=== PATIENT | female | born 1965 | race Caucasian/White ===

== ENCOUNTER → 2019-02-04 07:27 | Outpatient (CLI) | payer BC, SELFPAY ==
--- NOTE | 2019-02-04 07:31 | DI.MG.S_ITS ---
BILATERAL DIGITAL SCREENING MAMMOGRAM 3D/2D WITH CAD: 02/04/2019 CLINICAL: Routine screening. Baseline exam. No prior exams were available for comparison. The tissue of both breasts is heterogeneously dense. This may lower the sensitivity of mammography. Current study was also evaluated with a Computer Aided Detection (CAD) system. No significant masses, calcifications, or other findings are seen in either breast. IMPRESSION: NEGATIVE There is no mammographic evidence of malignancy. A 1 year screening mammogram is recommended. This exam was interpreted at Station ID: [id number]. NOTE: For mammograms, a report in lay terms will be sent to the patient. Approximately 15% of breast malignancies will not be visualized mammographically. In the management of a palpable breast mass, a negative mammogram must not discourage biopsy of a clinically suspicious lesion. Electronically Signed By: Vinicius blake/jarad:02/04/2019 09:14:57 letter sent: Normal Exam ACR BI-RADS Category 1: Negative [id number]
== END ==
PROVIDERS: PCP Nurse Practitioner Family; Visit Provider Nurse Practitioner Family
DX: Z12.31 Encounter for screening mammogram for malignant neoplasm of breast (principal)
CPT/HCPCS: 77063; 77067

== ENCOUNTER → 2019-02-04 07:33 | Outpatient (CLI) | payer BC, SELFPAY ==
--- NOTE | 2019-02-04 08:08 | DI.MRI.S_ITS ---
PROCEDURE: MR HEAD/BRAIN WO CON INDICATIONS: Headache. TECHNIQUE: Noncontrast axial T1 spin echo, axial T2 fast spin echo, sagittal and axial FLAIR, coronal T2 fast spin echo, axial gradient echo, axial diffusion and ADC through the brain. COMPARISON: None. FINDINGS: Image quality: Excellent. CSF Spaces: Basal cisterns are patent. No extra-axial fluid collections. Ventricles are normal in size and shape. Brain: No intracranial masses or hemorrhage. Robles/white matter interface is normal. Brainstem appears normal. Diffusion-weighted images demonstrate no acute ischemic insult. No chronic ischemic insults. Normal intravascular flow voids are present. Skull and face: Calvarium has normal marrow signal. Orbits appear normal. Sinuses: There is mild mucosal thickening within the bilateral sphenoid, ethmoid, and maxillary sinuses.. IMPRESSION: 1. Negative evaluation of the brain. 2. Sinus disease. Dictated by: Jong Bahena M.D. on 02/04/2019 at 11:46 Approved by: Jong Bahena M.D. on 02/04/2019 at 11:48
[2019-02-04 08:57] LABS: Hematocrit 40.1 % (36-46); Hemoglobin 13.2 g/dL (12.0-16.0); Mean Corpuscular HGB Conc 32.9 % (30-36); Mean Corpuscular Hemoglobin 28.9 PG (26-34); Mean Corpuscular Volume 87.9 fL (80-100); Platelet Count 263 X10^3/uL (150-400); Red Blood Cell Count 4.57 X10^6/uL (4.0-5.2); White Blood Cell Count 5.7 X10^3/uL (4.5-11.0)
[2019-02-04 09:31] LABS: Alanine Aminotransferase 35 IU/L (9-52); Albumin 4.7 g/dL (3.5-5.0); Albumin Globulin Ratio 1.8 (1.0-2.8); Alkaline Phosphatase 65 U/L (38-126); Aspartate Aminotransferase 23 IU/L (14-36); BUN Creatinine Ratio 17.8 (6-22); Bilirubin Total 0.6 mg/dL (0.2-1.3); Blood Urea Nitrogen 16 mg/dL (7-17); Calcium 9.9 mg/dL (8.4-10.2); Carbon Dioxide 30 mmol/L (22-32); Chloride 101 mmol/L (98-107); Cholesterol 226 mg/dL (140-199); Estimated Glomerular Filt Rate > 60.0 mL/min (>60); Globulin 2.6 g/dL (1.7-4.1); Glucose 99 mg/dL (70-100); HDL Cholesterol 95 mg/dL (40-60); HEMOLYSIS < 15 (0-50); LDL Cholesterol Calculated 115 mg/dL (<100); Potassium 5.1 mmol/L (3.4-5.1); Sodium 138 mmol/L (137-145); Total Protein 7.3 g/dL (6.3-8.2); Triglycerides 82 mg/dL (35-150)
== END ==
PROVIDERS: PCP Nurse Practitioner Family; Visit Provider Nurse Practitioner Family
DX: Z00.00 Encounter for general adult medical examination without abnormal findings (principal); R51 Headache; J32.8 Other chronic sinusitis
CPT/HCPCS: 36415; 70551; 80053; 80061; 85027

== ENCOUNTER → 2019-09-21 11:26 | Outpatient (CLI) | payer BC, SELFPAY | PROVIDERS: PCP Nurse Practitioner Family | DX: Z23 Encounter for immunization (principal) | CPT/HCPCS: 90471; 90686 ==

== ENCOUNTER → 2020-09-09 12:12 | Outpatient (CLI) | payer SELFPAY ==
[2020-09-09 13:46] LABS: Hematocrit 41.5 % (36-46); Hemoglobin 13.4 g/dL (12.0-16.0); Mean Corpuscular HGB Conc 32.3 % (30-36); Mean Corpuscular Hemoglobin 28.8 PG (26-34); Mean Corpuscular Volume 89.3 fL (80-100); Platelet Count 240 X10^3/uL (150-400); Red Blood Cell Count 4.65 X10^6/uL (4.0-5.2); Red Cell Distribution Width 13.4 % (11.6-14.8); White Blood Cell Count 4.7 X10^3/uL (4.5-11.0)
[2020-09-09 14:10] LABS: Alanine Aminotransferase 32 IU/L (<35); Albumin 4.6 g/dL (3.5-5.0); Albumin Globulin Ratio 1.4 (1.0-2.8); Alkaline Phosphatase 86 U/L (38-126); Aspartate Aminotransferase 27 IU/L (14-36); BUN Creatinine Ratio 16.9 (6-22); Bilirubin Total 0.7 mg/dL (0.2-1.3); Blood Urea Nitrogen 15 mg/dL (7-17); Calcium 9.6 mg/dL (8.4-10.2); Carbon Dioxide 29 mmol/L (22-32); Chloride 104 mmol/L (98-107); Estimated Glomerular Filt Rate > 60.0 mL/min (>60); Globulin 3.2 g/dL (1.7-4.1); Glucose 95 mg/dL (70-100); HEMOLYSIS < 15 (0-50); Potassium 4.1 mmol/L (3.4-5.1); Sodium 139 mmol/L (137-145); Total Protein 7.8 g/dL (6.3-8.2)
[2020-09-09 14:43] LABS: TSH w/ Reflex to FT4 3.87 uIU/mL (0.47-4.68)
[2020-09-09 15:17] LABS: Folate 14.7 ng/mL (2.76-20.0); Vitamin B12 474 pg/mL (239-931)
== END ==
PROVIDERS: PCP Nurse Practitioner Family; Referring Provider Nurse Practitioner Family; Visit Provider Nurse Practitioner Family
DX: Z00.00 Encounter for general adult medical examination without abnormal findings (principal); F41.9 Anxiety disorder, unspecified; R53.83 Other fatigue; R63.5 Abnormal weight gain
CPT/HCPCS: 36415; 80053; 82607; 82746; 84443; 85027

== ENCOUNTER → 2022-09-14 11:52 | Outpatient (CLI) | payer OTHER, SELFPAY ==
[2022-09-14 12:33] LABS: Add Manual Diff / Slide Review NO; Basophils Absolute Auto 100 /uL (0-100); Eosinophils Absolute Auto 900 /uL (0-450); Eosinophils Percent Auto 16.9 % (2-4); Hematocrit 41.8 % (36-46); Hemoglobin 13.5 g/dL (12.0-16.0); Lymphocytes Absolute Auto 1700 /uL (1100-4500); Lymphocytes Percent Auto 31.5 % (25-40); Mean Corpuscular HGB Conc 32.4 % (30-36); Mean Corpuscular Hemoglobin 28.4 PG (26-34); Mean Corpuscular Volume 87.7 fL (80-100); Monocytes Absolute Auto 300 /uL (0-900); Monocytes Percent Auto 4.9 % (3-14); Neutrophils Absolute Auto 2500 /uL (1500-7000); Neutrophils Percent Auto 45.7 % (50-75); Platelet Count 258 X10^3/uL (150-400); Red Blood Cell Count 4.77 X10^6/uL (4.0-5.2); Red Cell Distribution Width 13.1 % (11.6-14.8); White Blood Cell Count 5.5 X10^3/uL (4.5-11.0)
[2022-09-14 12:52] LABS: Alanine Aminotransferase 37 IU/L (<35); Albumin 4.3 g/dL (3.5-5.0); Albumin Globulin Ratio 1.3 (1.0-2.8); Alkaline Phosphatase 85 U/L (38-126); Aspartate Aminotransferase 27 IU/L (14-36); BUN Creatinine Ratio 16.9 (6-22); Bilirubin Total 0.5 mg/dL (0.2-1.3); Blood Urea Nitrogen 15 mg/dL (7-17); Calcium 9.2 mg/dL (8.4-10.2); Carbon Dioxide 28 mmol/L (22-32); Chloride 103 mmol/L (98-107); Cholesterol 231 mg/dL (140-199); Estimated Glomerular Filt Rate > 60 mL/min (>60); Globulin 3.3 g/dL (1.7-4.1); Glucose 97 mg/dL (70-100); HDL Cholesterol 68 mg/dL (40-60); HEMOLYSIS < 15 (0-50); LDL Cholesterol Calculated 150 mg/dL (<100); Potassium 4.4 mmol/L (3.4-5.1); Sodium 143 mmol/L (137-145); Total Protein 7.6 g/dL (6.3-8.2); Triglycerides 65 mg/dL (35-150)
[2022-09-14 13:24] LABS: TSH w/ Reflex to FT4 2.77 uIU/mL (0.47-4.68)
== END ==
PROVIDERS: PCP Family Medicine; Referring Provider Family Medicine; Visit Provider Family Medicine
DX: Z00.00 Encounter for general adult medical examination without abnormal findings (principal)
CPT/HCPCS: 36415; 80053; 80061; 84443; 85025

== ENCOUNTER → 2023-05-21 10:18 | Outpatient (CLI) | payer OTHER, SELFPAY ==
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
[2023-05-21 11:06] LABS: Add Manual Diff / Slide Review NO; Basophils Absolute Auto 100 /uL (0-100); Eosinophils Absolute Auto 400 /uL (0-450); Eosinophils Percent Auto 7.3 % (2-4); Hemoglobin 14.7 g/dL (12.0-16.0); Lymphocytes Absolute Auto 1600 /uL (1100-4500); Lymphocytes Percent Auto 28.2 % (25-40); Mean Corpuscular HGB Conc 33.4 % (30-36); Mean Corpuscular Hemoglobin 29.4 PG (26-34); Monocytes Absolute Auto 300 /uL (0-900); Monocytes Percent Auto 6.1 % (3-14); Neutrophils Absolute Auto 3200 /uL (1500-7000); Neutrophils Percent Auto 57.4 % (50-75); Platelet Count 246 X10^3/uL (150-400); White Blood Cell Count 5.6 X10^3/uL (4.5-11.0)
[2023-05-21 11:29] LABS: Alanine Aminotransferase 32 IU/L (<35); Albumin 4.6 g/dL (3.5-5.0); Albumin Globulin Ratio 1.4 (1.0-2.8); Alkaline Phosphatase 68 U/L (38-126); Aspartate Aminotransferase 25 IU/L (14-36); BUN Creatinine Ratio 15.3 (6-22); Bilirubin Total 0.5 mg/dL (0.2-1.3); Blood Urea Nitrogen 13 mg/dL (7-17); Calcium 9.3 mg/dL (8.4-10.2); Carbon Dioxide 29 mmol/L (22-32); Chloride 101 mmol/L (98-107); Estimated Glomerular Filt Rate > 60 mL/min (>60); Globulin 3.2 g/dL (1.7-4.1); Glucose 95 mg/dL (70-100); HEMOLYSIS < 15 (0-50); Potassium 4.4 mmol/L (3.4-5.1); Sodium 139 mmol/L (137-145); Total Protein 7.8 g/dL (6.3-8.2)
== END ==
PROVIDERS: PCP Family Medicine; Referring Provider Family Medicine; Visit Provider Family Medicine
DX: R63.5 Abnormal weight gain (principal); F41.9 Anxiety disorder, unspecified; Z86.39 Personal history of other endocrine, nutritional and metabolic disease; R53.83 Other fatigue
CPT/HCPCS: 36415; 72040; 80053; 84443; 85025

== ENCOUNTER 2023-10-14 22:11 | Observation (INO) | payer OTHER, SELFPAY ==
[2023-10-14 22:20] VITALS: BP 200/79; PULSE 63; RESP 18; TEMP 36.8; O2SAT 100; BMI 29.0
[2023-10-14 22:49] LABS: Add Manual Diff / Slide Review NO; Basophils Absolute Auto 100 /uL (0-100); Basophils Percent Auto 0.6 % (0-2); Eosinophils Absolute Auto 0 /uL (0-450); Eosinophils Percent Auto 0.3 % (2-4); Hematocrit 41.9 % (36-46); Hemoglobin 13.8 g/dL (12.0-16.0); Lymphocytes Absolute Auto 1000 /uL (1100-4500); Lymphocytes Percent Auto 5.8 % (25-40); Mean Corpuscular Hemoglobin 29.3 PG (26-34); Mean Corpuscular Volume 88.7 fL (80-100); Monocytes Absolute Auto 600 /uL (0-900); Monocytes Percent Auto 3.5 % (3-14); Neutrophils Absolute Auto 14800 /uL (1500-7000); Neutrophils Percent Auto 89.8 % (50-75); Platelet Count 239 X10^3/uL (150-400); Red Blood Cell Count 4.72 X10^6/uL (4.0-5.2); Red Cell Distribution Width 12.9 % (11.6-14.8); White Blood Cell Count 16.5 X10^3/uL (4.5-11.0)
[2023-10-14 22:56] LABS: Appearance Urine UA CLEAR; Bilirubin Urine UA NEGATIVE (NEGATIVE); Color Urine UA YELLOW; Glucose Urine UA NEGATIVE (Negative); Ketones Urine UA 1+ (NEGATIVE); Leukocyte Esterase Urine UA NEGATIVE (NEGATIVE); Nitrite Urine UA NEGATIVE (Negative); Occult Blood Urine UA 1+ (Negative); Protein Urine UA NEGATIVE (Negative); Specific Gravity Urine UA >=1.030 (1.000-1.035); Urobilinogen Urine UA 0.2 E.U./dL (0.2)
[2023-10-14 23:12] LABS: Bacteria Urine Occasional (0-1); Calcium Oxalate Crystals Urine Occasional; Culture Indicated Urine Cult Not Indicated; RBC Urine 0-1/HPF (0-5/HPF); Squamous Epithelial Cell Urine 1-5 /HPF (0-5/HPF); WBC Urine 0-1/HPF (0-5/HPF)
[2023-10-14 23:23] LABS: Alanine Aminotransferase 25 IU/L (<35); Albumin 4.4 g/dL (3.5-5.0); Albumin Globulin Ratio 1.4 (1.0-2.8); Alkaline Phosphatase 74 U/L (38-126); Aspartate Aminotransferase 21 IU/L (14-36); Bilirubin Total 0.8 mg/dL (0.2-1.3); Blood Urea Nitrogen 16 mg/dL (7-17); Calcium 9.7 mg/dL (8.4-10.2); Carbon Dioxide 26 mmol/L (22-32); Chloride 102 mmol/L (98-107); Estimated Glomerular Filt Rate > 60 mL/min (>60); Globulin 3.1 g/dL (1.7-4.1); Glucose 146 mg/dL (70-100); HEMOLYSIS < 15 (0-50); Lipase 89 U/L (23-300); Potassium 4.2 mmol/L (3.4-5.1); Sodium 135 mmol/L (137-145); Total Protein 7.5 g/dL (6.3-8.2)
--- NOTE | 2023-10-14 23:38 | DI.CT.S_ITS ---
PROCEDURE: CT KIDNEY URETER BLADDER (KUB) INDICATIONS: abd and flank pain TECHNIQUE: Axial sections were acquired from the lung bases to the pubic symphysis. Coronal and sagittal reformats were performed. For radiation dose reduction, the following was used: automated exposure control, adjustment of mA and/or kV according to patient size. COMPARISON: None. FINDINGS: Image quality: Excellent. Lung bases: Unremarkable. Heart: No significant findings. URINARY: Kidneys and ureters: 4 mm calculus is seen in the distal right ureter (72/2) without significant right hydronephrosis or hydroureter. No left ureteral calculus or hydronephrosis. No additional nonobstructing renal calculi. Bladder: Bladder is decompressed. No stones. ABDOMEN: Liver: No contour-deforming solid mass. Gallbladder: No radiopaque gallstones or wall thickening. Biliary ducts: No biliary dilation. Pancreas: No ductal dilation. Spleen: Size is within normal limits. Adrenal Glands: No adrenal nodules. Stomach and Bowel: Tiny hiatal hernia. Retrocecal appendix is dilated to 11 mm with periappendiceal fat stranding. Small appendicular list are present. No focal fluid collection. No signs bowel obstruction. Peritoneum: Trace fluid in the right pericolic gutter is most likely reactive. No free air. Ventral Wall: No hernia. Abdominal Nodes: No enlarged retroperitoneal or mesenteric lymph nodes. Vessels: Aorta and inferior vena cava are normal in size. PELVIS: Pelvic Organs: Unremarkable. Pelvic Nodes: Unremarkable. Miscellaneous: No inguinal hernias are seen. Bones: Unremarkable. IMPRESSION: 1. Dilated retrocecal appendix with appendicoliths and periappendiceal fat stranding is consistent with acute appendicitis. 2. Right distal ureteral 4 mm calculus near the ureterovesicular junction. No significant hydronephrosis. Approved by: Azael Sheldon M.D. on 10/15/2023 at 0:52 Findings were discussed with the referring physician, Dr. Olson, by telephone on 10/15/2023 at 12:51 AM.
[2023-10-15] VITALS (17 sets, daily range): BP systolic 100–173; BP diastolic 38–78; PULSE 56–90; RESP 14–21; TEMP 35.5–38.3; O2SAT 93–100; BMI 29.0
--- NOTE | 2023-10-15 | PATH_ITS ---
[facility] Accession Number: [id number] No. of containers..01 Tissue . 01 Material submitted: . appendix - APPENDIX . 01 Diagnosis: Appendix, Appendectomy: Acute appendicitis and periappendicitis. MRV 10/23/2023 1244 Local . 01 Electronically signed: . Tiki Shah MD, Pathologist NPI- [id number] . 01 Gross description: . The specimen is received in formalin labeled with the patient's name, , and appendix, consists of a gonzalez vermiform appendix measuring 6.4 cm in length by 1.3 cm in average diameter with gonzalez, smooth serosa and adherent material consistent with exudate. The margin is inked blue, and sectioning reveals a lumen filled with gonzalez to brown semi-solid material, and ranging from 0.4 to 0.9 cm in greatest dimension. The mason range from 0.1 to 0.3 cm thick with possible disruptions identified in the distal tip. No lesions are identified. Religion Department Chair sections to include the margin, one-half of the bisected distal tip, and cross section are submitted in cassette A1. ([id number]) /MRV 10/16/2023 1231 Local . 01 Pathologist provided ICD-10: K35.80 . 01 CPT . 260248 Specimen Comment: A courtesy copy of this report has been sent to [phone] Performed at: [address] [facility] [address] [address], [place], [place] [id number] MD Prem Hilliard MD Phone: [phone]
[2023-10-15] MEDS: KETOROLAC 30 MG/ML VIAL 15 MG IV (00:32)
--- NOTE | 2023-10-15 01:16 | ED.ABDPAIN ---
HPI - Abdominal Pain General Chief Complaint: Abdominal Pain Stated Complaint: Right ABD pain radiates to lower right back Time Seen by Provider: 10/15/23 00:51 Source: patient Mode of arrival: Ambulatory History of Present Illness HPI narrative: Patient is a 58 female significant past medical history presenting today with right-sided back pain and abdominal pain. She says for about a week she has had some right lower quadrant pain she thought she was just hungry isn't really gone away are moved. However today suddenly she had increasing intense pain not controlled. She would taken anything at home she sometimes felt nauseous but did not really throw up. She is not had any fever or chills. No chest pain palpitations shortness of breath or other symptoms. Related Data Previous Rx's Medication Instructions Recorded methocarbamol 500 mg tablet 500 mg PO TID PRN muscle pain #90 12/28/22 tabs Allergies Allergy/AdvReac Type Severity Reaction Status Date / Time grass pollen Allergy Severe hives and Verified 10/14/23 22:20 itchy Preservatives in foods Allergy Severe Throat Uncoded 05/21/23 09:25 closes Patient History Medical History Borderline hypertension Strain of neck muscle Well adult exam Skin lump of leg (10/2020) Insomnia History of hypothyroidism (1989) Weight gain Anxiety Fatigue Tonsil stone Social History Smoking Status: Never smoker second hand exposure: No alcohol intake: current (all kinds, socially on weekends, and a glass or 2 of wine during week.) substance use type: does not use Smoking Status: Never smoker alcohol intake frequency: a few times a week Substance Use Type: does not use Exam Initial Vital Signs Initial Vital Signs: Vital Signs Temperature 98.2 F 10/14/23 22:20 Pulse Rate 63 10/14/23 22:20 Respiratory Rate 18 10/14/23 22:20 Blood Pressure 200/79 H 10/14/23 22:20 Pulse Oximetry 100 10/14/23 22:20 Oxygen Delivery Method Room Air 10/14/23 22:20 GENERAL: Alert well-appearing 58-year-old female and in no acute distress. HEENT: Head atraumatic,EOMI, pupils reactive, face symmetric, moist mucous membranes CARDIOVASCULAR: Regular rate and rhythm without murmurs, rubs or gallops. RESPIRATORY: Breath sounds equal bilaterally, no wheezes rales or rhonchi. ABDOMEN: Soft, right lower quadrant pain no guarding no rebound negative Lu's sign no right upper quadrant pain : Mild right CVA tenderness EXTREMITIES: Normal range of motion, no clubbing or edema. Neurovascularly intact NEUROLOGICAL: Alert and oriented x4.Normal gait and speech. SKIN: Warm, dry, no laceration, no petechiae, no rashes or lesions. Course Orders Ordered: ED Orders 10/14/23 22:25 EKG-12 Lead Stat 10/14/23 22:33 Complete Blood Count AUTO DIFF Stat Comprehensive Metabolic Panel Stat Lipase Stat Urinalysis and Microscopic Stat 10/14/23 23:38 CT kidney ureter bladder (KUB) Stat Ondansetron HCl (Ondansetron 4 Mg Odt) 4 mg PO NOW PRN PRN Reason: Nausea And Vomiting Ondansetron HCl (Ondansetron 4 Mg/2 Ml Inj) 4 mg IV NOW PRN PRN Reason: Nausea And Vomiting Discontinued Medications Piperacillin Sod/Tazobactam (Sod 4.5 gm/ Sodium Chloride) 100 mls @ 200 mls/hr IV NOW ONE Stop: 10/15/23 01:17 Last Admin: 10/15/23 01:26 Dose: 200 mls/hr Ketorolac Tromethamine (Ketorolac 30 Mg/Ml Vial) 15 mg IV NOW ONE Stop: 10/15/23 00:30 Last Admin: 10/15/23 00:32 Dose: 15 mg Documented By: JITENDRA Morphine Sulfate (Morphine 2 Mg/Ml Inj) 2 mg IV NOW ONE Stop: 10/15/23 01:17 Last Admin: 10/15/23 01:26 Dose: 2 mg Vital Signs Vital signs: Vital Signs - 8 hr 10/14/23 22:20 10/15/23 00:26 10/15/23 00:27 Temperature 98.2 F Pulse Rate 63 57 L Respiratory Rate 18 Blood Pressure 200/79 H Pulse Oximetry 100 94 100 Oxygen Delivery Method Room Air 10/15/23 00:27 10/15/23 00:30 10/15/23 01:00 Temperature Pulse Rate 60 56 L Respiratory Rate Blood Pressure 173/78 H Pulse Oximetry 99 96 Oxygen Delivery Method MDM - Abdominal Pain Lab Data 10/14/23 22:33 10/14/23 22:33 Labs: Lab Results 10/14/23 Range/Units 22:33 WBC 16.5 H (4.5-11.0) X10^3/uL RBC 4.72 (4.0-5.2) X10^6/uL Hgb 13.8 (12.0-16.0) g/dL Hct 41.9 (36-46) % MCV 88.7 (80-100) fL MCH 29.3 (26-34) PG MCHC 33.0 (30-36) % RDW 12.9 (11.6-14.8) % Plt Count 239 (150-400) X10^3/uL Neut % (Auto) 89.8 H (50-75) % Lymph % (Auto) 5.8 L (25-40) % [place] % (Auto) 3.5 (3-14) % Eos % (Auto) 0.3 L (2-4) % Baso % (Auto) 0.6 (0-2) % Neut # (Auto) 73669 H (0266-7067) /uL Lymph # (Auto) 1000 L (3960-6679) /uL [place] # (Auto) 600 (0-900) /uL Eos # (Auto) 0 (0-450) /uL Baso # (Auto) 100 (0-100) /uL Sodium 135 L (137-145) mmol/L Potassium 4.2 (3.4-5.1) mmol/L Chloride 102 (98-107) mmol/L Carbon Dioxide 26 (22-32) mmol/L BUN 16 (7-17) mg/dL Creatinine 0.80 (0.52-1.04) mg/dL Estimated GFR > 60 (>60) mL/min BUN/Creatinine Ratio 20.0 (6-22) Glucose 146 H (70-100) mg/dL Calcium 9.7 (8.4-10.2) mg/dL Total Bilirubin 0.8 (0.2-1.3) mg/dL AST 21 (14-36) IU/L ALT 25 (<35) IU/L Alkaline Phosphatase 74 (38-126) U/L Total Protein 7.5 (6.3-8.2) g/dL Albumin 4.4 (3.5-5.0) g/dL Globulin 3.1 (1.7-4.1) g/dL Albumin/Globulin Ratio 1.4 (1.0-2.8) Lipase 89 (23-300) U/L Urine Color Yellow Urine Appearance Clear Urine pH 5.0 (4.5-8.0) Ur Specific [place] >=1.030 H (1.000-1.035) Urine Protein Negative (Negative) Urine Glucose (UA) Negative (Negative) g/dL Urine Ketones 1+ H (NEGATIVE) Urine Occult Blood 1+ H (Negative) Urine Nitrate Negative (Negative) Urine Bilirubin Negative (NEGATIVE) Urine Urobilinogen 0.2 (0.2) E.U./dL Ur Leukocyte Esterase Negative (NEGATIVE) Urine RBC 0-1/hpf (0-5/HPF) Urine WBC 0-1/hpf (0-5/HPF) Ur Squamous Epith Cells 1-5 /hpf (0-5/HPF) Calcium Oxalate Crystal Occasional H Urine Bacteria Occasional (0-1) (None) Ur Culture Indicated? Cult not indicated Imaging Data CT scan - abdomen/pelvis: Radiologist's Impression: PROCEDURE: CT KIDNEY URETER BLADDER (KUB) INDICATIONS: abd and flank pain TECHNIQUE: Axial sections were acquired from the lung bases to the pubic symphysis. Coronal and sagittal reformats were performed. For radiation dose reduction, the following was used: automated exposure control, adjustment of mA and/or kV according to patient size. COMPARISON: None. FINDINGS: Image quality: Excellent. Lung bases: Unremarkable. Heart: No significant findings. URINARY: Kidneys and ureters: 4 mm calculus is seen in the distal right ureter (72/2) without significant right hydronephrosis or hydroureter. No left ureteral calculus or hydronephrosis. No additional nonobstructing renal calculi. Bladder: Bladder is decompressed. No stones. ABDOMEN: Liver: No contour-deforming solid mass. Gallbladder: No radiopaque gallstones or wall thickening. Biliary ducts: No biliary dilation. Pancreas: No ductal dilation. Spleen: Size is within normal limits. Adrenal Glands: No adrenal nodules. Stomach and Bowel: Tiny hiatal hernia. Retrocecal appendix is dilated to 11 mm with periappendiceal fat stranding. Small appendicular list are present. No focal fluid collection. No signs bowel obstruction. Peritoneum: Trace fluid in the right pericolic gutter is most likely reactive. No free air. Ventral Wall: No hernia. Abdominal Nodes: No enlarged retroperitoneal or mesenteric lymph nodes. Vessels: Aorta and inferior vena cava are normal in size. PELVIS: Pelvic Organs: Unremarkable. Pelvic Nodes: Unremarkable. Miscellaneous: No inguinal hernias are seen. Bones: Unremarkable. IMPRESSION: 1. Dilated retrocecal appendix with appendicoliths and periappendiceal fat stranding is consistent with acute appendicitis. 2. Right distal ureteral 4 mm calculus near the ureterovesicular junction. No significant hydronephrosis. Approved by: Azael Sheldon M.D. on 10/15/2023 at 0:52 Findings were discussed with the referring physician, Dr. Olson, by telephone on 10/15/2023 at 12:51 AM. [facility] Narrative Medical decision making narrative: Patient 58-year-old female presents today with right-sided abdominal pain pain very he is much improved after Toradol. Blood work does show leukocytosis of 16.5 with a left shift, no electrolyte abnormality or [place] CT noncontrast confirms retrocecal appendix with appendicolith consistent with acute appendicitis and 4 mm UVJ ureteral stone. Patient is given Zosyn and morphine. Dr. Figueroa updated patient's symptoms test results and accepts patient. Discharge Plan Departure Patient Disposition: Admitted as Observation Clinical Impression: Acute appendicitis, Kidney stones Admit Date/Time: 10/15/23 01:20 Admit Provider: Moose Figueroa
[2023-10-15] MEDS: MORPHINE 2 MG/ML INJ IV (01:26)
[2023-10-15] MEDS: PIPERACILLIN/TAZO 4.5 GM in SODIUM CHLORIDE 0.9% 100 ML IV (01:26)
[2023-10-15] MEDS: SODIUM CHLORIDE 0.9% 1,000 ML 125 ML IV (02:44)
[2023-10-15] MEDS: HYDROMORPHONE 0.5 MG INJ IV (03:03)
--- NOTE | 2023-10-15 03:56 | PC.NURSE ---
Pt. admitted to room 218, accompanied by her spouse Dexter Zaidi. Oriented to her room & encouraged to call for any needs & assistance when getting OOB to the bathroom. Pain level was 7/10 even after the Morphine. Dr. Figueroa notified ordered to changed Morphine to Dilaudid 0.5 mg. every 2 hours PRN. Dilaudid admin. with good pain relief, will cont. POC & monitor.
[2023-10-15] MEDS: PIPERACILLIN/TAZO 3.375 GM in SODIUM CHLORIDE 0.9% 100 ML IV ×3 (06:11→21:18)
--- NOTE | 2023-10-15 15:39 | PM.HP.1 ---
History of Present Illness History of Present Illness Date Patient Seen: 10/15/23 Time Patient Seen: 15:39 Chief complaint: Right ABD pain radiates to lower right back Narrative: Haley is a 58-year-old woman who presented to the emergency department yesterday with abdominal pain going on for about a week. The pain started out generalized and became localized to the right lower quadrant. A CT scan revealed acute appendicitis with no evidence of perforation. Multiple appendicoliths were noted. Also noted was a nonobstructing right ureteral stone. She has never had any prior abdominal surgery. [facility] Medical History Borderline hypertension Strain of neck muscle Well adult exam Skin lump of leg (10/2020) Insomnia History of hypothyroidism (1989) Weight gain Anxiety Fatigue Tonsil stone Social History household members: spouse Smoking Status: Never smoker second hand exposure: No alcohol intake: current substance use type: does not use Meds Home Medications and Allergies Home Medications Medication Instructions Recorded Confirmed Type No Known Home Medications 10/15/23 10/15/23 History Allergies Allergy/AdvReac Type Severity Reaction Status Date / Time grass pollen Allergy Severe hives and Verified 10/14/23 22:20 itchy Preservatives in foods Allergy Severe Throat Uncoded 05/21/23 09:25 closes Exam Vital Signs (past 8 hours): - 10/15/23 08:42 10/15/23 12:00 Temperature 98.6 F 100.3 F H Pulse Rate 90 89 Respiratory Rate 19 18 Blood Pressure 113/53 L 114/53 L Pulse Oximetry 96 98 Oxygen Flow Rate 0 0 Oxygen Delivery Method Room Air Oxygen Flow Rate 0 Narrative Exam Narrative: Tender to palpation at McBurney's point Objective Labs 10/14/23 22:33 10/14/23 22:33 Labs: Laboratory Results - last 24 hr 10/14/23 22:33 WBC 16.5 H RBC 4.72 Hgb 13.8 Hct 41.9 MCV 88.7 MCH 29.3 MCHC 33.0 RDW 12.9 Plt Count 239 Neut % (Auto) 89.8 H Lymph % (Auto) 5.8 L [place] % (Auto) 3.5 Eos % (Auto) 0.3 L Baso % (Auto) 0.6 Neut # (Auto) 96771 H Lymph # (Auto) 1000 L [place] # (Auto) 600 Eos # (Auto) 0 Baso # (Auto) 100 Sodium 135 L Potassium 4.2 Chloride 102 Carbon Dioxide 26 BUN 16 Creatinine 0.80 Estimated GFR > 60 BUN/Creatinine Ratio 20.0 Glucose 146 H Calcium 9.7 Total Bilirubin 0.8 AST 21 ALT 25 Alkaline Phosphatase 74 Total Protein 7.5 Albumin 4.4 Globulin 3.1 Albumin/Globulin Ratio 1.4 Lipase 89 Urine Color Yellow Urine Appearance Clear Urine pH 5.0 Ur Specific [place] >=1.030 H Urine Protein Negative Urine Glucose (UA) Negative Urine Ketones 1+ H Urine Occult Blood 1+ H Urine Nitrate Negative Urine Bilirubin Negative Urine Urobilinogen 0.2 Ur Leukocyte Esterase Negative Urine RBC 0-1/hpf Urine WBC 0-1/hpf Ur Squamous Epith Cells 1-5 /hpf Calcium Oxalate Crystal Occasional H Urine Bacteria Occasional (0-1) Ur Culture Indicated? Cult not indicated Assessment & Plan Assessment and plan (1) Acute appendicitis: Status: Acute Plan I discussed the treatment options available for acute appendicitis including laparoscopic appendectomy and IV antibiotics alone. Since she has a appendicoliths I recommended we proceed with a laparoscopic appendectomy. She would like to proceed. Quality VTE Deep Vein Thrombosis/Pulmonary Embolism Present on Admission: No
--- NOTE | 2023-10-15 16:15 | SUR.OPER ---
Supine on padded OR bed, head on pillow, arms secured on padded arm boards at <90 degrees abduction, legs uncrossed, safety belt at thigh, tape over blanket over lower legs.
[2023-10-15] MEDS: LACTATED RINGERS 1,000 ML 42 ML IV (16:16)
[2023-10-15] MEDS: SCOPOLAMINE 1 PATCH TOP (16:18)
--- NOTE | 2023-10-15 16:25 | CM.DANOTE ---
Brief DCP Assessment Note Patient is a 58yo F here follow appendicitis and kidney stones. Lap appy with Dr. Figueroa 10/15/23 PCP John Thompson Payer [employer] and self pay [facility] reviewed EMR. [facility] unable to meet with patient today due to triaging needs. When assessment was attempted, patient was in surgery. From chart, patient lives with Dexter. Plan: CM team will continue to follow closely for comprehensive DCP Assessment. Likely home when stable with family support. ANA Schuster Discharge Planning/Care Management Advanced directive, confirm from FAMILY Start: 10/15/23 03:35 Freq: Q24H Status: Active Protocol: Document 10/15/23 03:35 MP (Rec: 10/15/23 03:37 MP [id number]) Advance Directive, confirm on record Time 03:37 Person contacted pt. Copy received No Document 10/15/23 04:23 MP (Rec: 10/15/23 04:31 MP [id number]) Advance Directive, confirm on record Time 03:37 Person contacted pt. Copy received No Person contacted Dexter Zaidi Discharge Assessment Start: 10/15/23 16:23 Freq: Status: Active Protocol: Document 10/15/23 16:23 SL (Rec: 10/15/23 16:25 SL [id number]) Discharge Planning Assessment Assigned Community Youth Secretary ANA Gonzalez DPOA/Assigned Designee Name Dexter Zaidi (spouse) Contact Information [phone] Advance Directives? Yes Advance Directives on File No History Provided By Medical Record Prior Living Arrangements House Household Members spouse Discharge Plan Home Whiteboard Updated in Patient Room with No name and ext. # of Community Youth Secretary Review Status In Process Next Review Type Continued Stay Review
[2023-10-15] MEDS: BUPIVACAINE 0.5% (PF) 30 ML, EPINEPHrine 0.15 MG INJ ×2 (16:51→17:21)
--- NOTE | 2023-10-15 17:32 | P.OP_ITS ---
Operative Date/Time/Diagnoses Date of procedure: 10/15/23 Time of procedure: 17:32 Pre-op diagnosis: Acute appendicitis Post-op diagnosis: same Procedure & Clinicians Procedure: Laparoscopic appendectomy Same procedure as scheduled: Yes Surgeon: Moose Figueroa Anesthesia Type: General Operative Notes Procedure in detail: The patient was on scheduled IV antibiotics. The patient was brought to the operating room, placed on the table in the supine position and general endotracheal anesthesia was induced. A time-out was performed. The abdomen was prepped and draped in the usual fashion. After injection of 0.25% Marcaine a 1 cm infraumbilical incision was created with a 15 blade scalpel. The umbilical stalk was grasped with a Jacoby clamp to elevate the abdominal wall. The infraumbilical midline fascia was cleared over 1 cm and the fascia was scored with cautery. The peritoneum was pierced with a Peon clamp. The Giovana port was placed and the abdomen was insufflated to 15 mmHg. The camera was inserted and there was no evidence of any injury from the entry. Next, 5 mm ports were placed in the suprapubic and left lower quadrant positions under direct vision. The patient was placed in Trendelenburg with the right-side elevated. The terminal ileum was swept away from the cecum and the appendix was visualized. The appendix was inflamed and distended and lying in a retrocecal location as predicted by the CT scan. The base of the appendix appeared relatively normal and so a window was created through the mesoappendix using a combination of blunt dissection with the [place] and bipolar energy with the power seal. We then amputated the appendix from the cecum using a single firing of the blue loaded echelon stapler. The mesoappendix was divided off of the colon mesentery to the tip appendix using the Power-seal. The specimen was placed in a Endo- Catch bag. A small amount of turbid fluid with suctioned from the base of the appendix and pelvis. The table was flattened and the terminal ileum and omentum were allowed to slide in over the appendiceal stump. Finally, the 5 mm ports were removed under direct vision. The pneumoperitoneum was released and the Giovana port was removed followed by the Endo-Catch bag. Additional local was injected into the fascia and the infraumbilical incision was closed with 2 interrupted 2-0 Vicryl sutures. The skin incisions were closed with 4 Monocryl. Steri-Strips were applied followed by Band-Aids. EBL: 5 mL Specimen: Appendix Post-operative Condition: stable Disposition: PACU
[2023-10-15] MEDS: ACETAMINOPHEN 325 MG TABLET 650 MG PO (17:42)
[2023-10-16 04:00] VITALS: BP 108/41; PULSE 52; RESP 16; TEMP 35.9; O2SAT 96
[2023-10-16] MEDS: PIPERACILLIN/TAZO 3.375 GM in SODIUM CHLORIDE 0.9% 100 ML IV (06:40)
[2023-10-16] MEDS: ACETAMINOPHEN 325 MG TABLET 650 MG PO (06:40)
[2023-10-16] MEDS: HYDROCODONE/ACET 5/325 TABLET 1 TAB PO (08:04)
[2023-10-16 08:39] VITALS: BP 105/52; PULSE 53; RESP 16; TEMP 36.3; O2SAT 97
--- NOTE | 2023-10-16 11:24 | PC.NURSE ---
Day shift: Discharge instructions gone over with patient and patient's spouse. All questions answered, patient stated understanding. PIV d/c'ed prior to discharge. Pt has all belongings. PCT Marlee escorted patient to exit.
--- NOTE | 2023-10-16 14:48 | CM.DPNOTE ---
DC Note Patient POD 1 from Laparoscopic appendectomy, discharged home with spouse to assist. No barriers identified to safe return home w/family, close outpatient follow up recommended. JW
--- NOTE | 2023-10-28 14:37 | PC.NURSE ---
Late Entry Note PIV 0.5mg Dilaudid administered to patient at approximately 10:00 on 10/15/2023 for severe pain due to appendicitis. This RN forgot to scan and document medication administration.
== END 2023-10-16 11:25 | disposition home or self-care (01) | DRG 399 ==
LOC: ED 10-15 01:19 → AC 10-15 02:23
PROVIDERS: Admitting Provider Surgery; Emergency Provider Emergency Medicine; PCP Family Medicine; Referring Provider Emergency Medicine; Visit Provider Surgery
PROC: 0DTJ4ZZ Resection of Appendix, Percutaneous Endoscopic Approach (ICD-10-PCS; CPT 44970; principal; 2023-10-15 16:30)
DX: K35.80 Unspecified acute appendicitis (principal)
CPT/HCPCS: 44970; 36415; 74176; 80053; 81001; 83690; 85025; 96365; 96375; 99222; 99284; 99285; G0378; J0171; J1100; J1170; J1885; J2250; J2270; J2405; J2543; J2704; J3010; J3490

== ENCOUNTER → 2024-05-28 17:21 | Outpatient (CLI) | payer OTHER, SELFPAY ==
[2023-10-15 02:40] VITALS: BMI 29.0
[2024-05-28 18:28] LABS: Cholesterol 228 mg/dL (140-199); HDL Cholesterol 79 mg/dL (40-60); LDL Cholesterol Calculated 136 mg/dL (<100); Triglycerides 65 mg/dL (35-150)
== END ==
PROVIDERS: PCP Family Medicine; Referring Provider Physician Assistant; Visit Provider Physician Assistant
DX: E66.9 Obesity, unspecified (principal)
CPT/HCPCS: 36415; 80061; 84443

== ENCOUNTER → 2024-08-03 15:59 | Outpatient (CLI) | payer OTHER, SELFPAY ==
[2023-10-15 02:40] VITALS: BMI 29.0
== END ==
PROVIDERS: PCP Family Medicine; Visit Provider Physician Assistant Surgical
DX: R30.0 Dysuria (principal)
CPT/HCPCS: 87077; 87086

== ENCOUNTER → 2024-08-04 16:43 | Outpatient (CLI) | payer OTHER, SELFPAY ==
[2023-10-15 02:40] VITALS: BMI 29.0
--- NOTE | 2024-08-04 16:44 | DI.US.S_ITS ---
PROCEDURE: US PELVIC COMPLETE INDICATIONS: right suprapubic pain, on HRT, patient concerned TECHNIQUE: Real-time scanning was performed of the pelvic organs, with image documentation. Additional endovaginal scanning was necessary due to incomplete visualization of the adnexal and endometrial structures by transabdominal scanning. COMPARISON: None. FINDINGS: Uterus: 6 x 2.9 x 3.5 cm. Anteverted positioning. Endometrium measures 4 mm. Mole bowel contents are seen within the endometrium. Posterior intramural fibroid measures 1 cm. Nabothian cysts, possibly containing debris. Ovaries: Not seen Other: No pathologic free fluid. IMPRESSION: Endometrium measures 4 mm, within normal limits by thickness. Possible endometrial debris is present, and possible large nabothian cyst containing debris If there is sufficient concern, consider direct visualization or further evaluation with MRI. Dictated by: Jung Zamora M.D. on 08/04/2024 at 18:49 Approved by: Jung Zamora M.D. on 08/04/2024 at 18:52
== END ==
PROVIDERS: PCP Family Medicine; Referring Provider Physician Assistant Surgical; Visit Provider Physician Assistant Surgical
DX: R10.2 Pelvic and perineal pain (principal); N70.92 Oophoritis, unspecified; D25.1 Intramural leiomyoma of uterus
CPT/HCPCS: 76856

== ENCOUNTER → 2024-08-12 11:26 | Outpatient (CLI) | payer OTHER, SELFPAY ==
[2023-10-15 02:40] VITALS: BMI 29.0
[2024-08-12 13:50] LABS: Add Manual Diff / Slide Review NO; Basophils Absolute Auto 100 /uL (0-100); Basophils Percent Auto 1.2 % (0-2); Eosinophils Absolute Auto 200 /uL (0-450); Eosinophils Percent Auto 3.6 % (2-4); Hematocrit 43.4 % (36-46); Hemoglobin 14.1 g/dL (12.0-16.0); Lymphocytes Absolute Auto 1500 /uL (1100-4500); Lymphocytes Percent Auto 26.1 % (25-40); Mean Corpuscular HGB Conc 32.5 % (30-36); Mean Corpuscular Hemoglobin 28.8 PG (26-34); Mean Corpuscular Volume 88.6 fL (80-100); Monocytes Absolute Auto 300 /uL (0-900); Monocytes Percent Auto 4.7 % (3-14); Neutrophils Absolute Auto 3700 /uL (1500-7000); Neutrophils Percent Auto 64.4 % (50-75); Platelet Count 404 X10^3/uL (150-400); Red Cell Distribution Width 12.2 % (11.6-14.8); White Blood Cell Count 5.7 X10^3/uL (4.5-11.0)
[2024-08-12 14:17] LABS: Alanine Aminotransferase 34 IU/L (<35); Albumin 4.2 g/dL (3.5-5.0); Albumin Globulin Ratio 1.4 (1.0-2.8); Alkaline Phosphatase 105 U/L (38-126); Aspartate Aminotransferase 23 IU/L (14-36); BUN Creatinine Ratio 14.1 (6-22); Bilirubin Total 0.6 mg/dL (0.2-1.3); Blood Urea Nitrogen 13 mg/dL (7-17); Calcium 9.8 mg/dL (8.4-10.2); Carbon Dioxide 27 mmol/L (22-32); Chloride 101 mmol/L (98-107); Estimated Glomerular Filt Rate > 60 mL/min (>60); Globulin 3.1 g/dL (1.7-4.1); Glucose 88 mg/dL (70-100); HEMOLYSIS < 15 (0-50); Potassium 5.2 mmol/L (3.4-5.1); Sodium 136 mmol/L (137-145); Total Protein 7.3 g/dL (6.3-8.2)
[2024-08-12 14:50] LABS: Ferritin 161 ng/mL (11-264)
[2024-08-12 22:32] LABS: HEMOLYSIS < 15 (0-50); Iron 82 ug/dL (37-170)
[2024-08-12 22:49] LABS: Percent Iron Saturation 35 % (15-50); Total Iron Binding Capacity 234 ug/dL (265-497); Transferrin 192 mg/dL (206-381)
[2024-08-12 23:23] LABS: Vitamin B12 > 1000 pg/mL (239-931)
== END ==
PROVIDERS: PCP Family Medicine; Referring Provider Physician Assistant; Visit Provider Physician Assistant
DX: R53.83 Other fatigue (principal); N95.0 Postmenopausal bleeding
CPT/HCPCS: 36415; 80053; 82607; 82728; 83540; 83550; 84443; 85025

== ENCOUNTER → 2024-08-19 17:00 | Outpatient (CLI) | payer OTHER, SELFPAY ==
[2023-10-15 02:40] VITALS: BMI 29.0
[2024-08-19 17:35] LABS: Bilirubin Urine UA NEGATIVE (NEGATIVE); Color Urine UA YELLOW; Glucose Urine UA NEGATIVE (Negative); Ketones Urine UA NEGATIVE (NEGATIVE); Leukocyte Esterase Urine UA 2+ (NEGATIVE); Nitrite Urine UA POSITIVE (Negative); Occult Blood Urine UA NEGATIVE (Negative); Protein Urine UA NEGATIVE (Negative); Urobilinogen Urine UA 0.2 E.U./dL (0.2)
[2024-08-19 17:55] LABS: Appearance Urine UA CLOUDY
[2024-08-19 18:30] LABS: Bacteria Urine Many (>30); Culture Indicated Urine Specimen Cultured; RBC Urine None Seen (0-5/HPF); Squamous Epithelial Cell Urine None Seen (0-5/HPF); Urine Volume 10mL (spun); WBC Urine 10-30/HPF (0-5/HPF)
== END ==
PROVIDERS: PCP Family Medicine; Referring Provider Physician Assistant; Visit Provider Physician Assistant
DX: N39.0 Urinary tract infection, site not specified (principal); R10.2 Pelvic and perineal pain
CPT/HCPCS: 81001; 87077; 87086; 87186

== ENCOUNTER → 2025-01-20 14:40 | Outpatient (CLI) | payer OTHER, SELFPAY ==
[2023-10-15 02:40] VITALS: BMI 29.0
[2025-01-20 19:36] LABS: Influenza A - CEPHEID Flu A POSITIVE (NEGATIVE); Influenza B - CEPHEID Flu B NEGATIVE (NEGATIVE); Respiratory Syncytial Virus Negative (Negative)
[2025-01-20 19:46] LABS: COVID-19 CEPHEID 4-PLEX PCR Negative (Negative)
== END ==
PROVIDERS: PCP Family Medicine; Visit Provider Physician Assistant
DX: R05.9 Cough, unspecified (principal)
CPT/HCPCS: 0241U

== ENCOUNTER → 2025-01-20 15:09 | Outpatient (CLI) | payer OTHER, SELFPAY ==
[2023-10-15 02:40] VITALS: BMI 29.0
--- NOTE | 2025-01-20 15:12 | DI.RAD.S_ITS ---
PROCEDURE: XR CHEST 2V INDICATIONS: cough x 1 mo TECHNIQUE: 2 views of the chest were acquired. COMPARISON: None. FINDINGS: Heart, mediastinum and pulmonary vascular: Heart is normal in size and configuration. Mediastinum is unremarkable. Pulmonary vascular is normal. Lungs: Clear Pleural spaces: Normal-no effusions or pneumothorax. Bones and soft tissues: Mild degenerative disc disease seen throughout the upper midthoracic spine IMPRESSION: Normal chest. Dictated by: Dell Sanchez M.D. on 01/21/2025 at 12:59 Approved by: Dell Sanchez M.D. on 01/21/2025 at 13:00
[2025-01-20 16:02] LABS: Add Manual Diff / Slide Review NO; Basophils Absolute Auto 0 /uL (0-100); Basophils Percent Auto 0.5 % (0-2); Eosinophils Absolute Auto 100 /uL (0-450); Eosinophils Percent Auto 3.2 % (2-4); Hematocrit 43.4 % (36-46); Hemoglobin 14.2 g/dL (12.0-16.0); Lymphocytes Absolute Auto 1700 /uL (1100-4500); Lymphocytes Percent Auto 61.1 % (25-40); Mean Corpuscular HGB Conc 32.8 % (30-36); Mean Corpuscular Hemoglobin 28.3 PG (26-34); Mean Corpuscular Volume 86.2 fL (80-100); Monocytes Absolute Auto 300 /uL (0-900); Monocytes Percent Auto 9.3 % (3-14); Neutrophils Absolute Auto 700 /uL (1500-7000); Neutrophils Percent Auto 25.9 % (50-75); Platelet Count 172 X10^3/uL (150-400); Red Blood Cell Count 5.04 X10^6/uL (4.0-5.2); Red Cell Distribution Width 12.9 % (11.6-14.8); White Blood Cell Count 2.8 X10^3/uL (4.5-11.0)
[2025-01-20 16:22] LABS: Alanine Aminotransferase 49 IU/L (<35); Albumin 4.4 g/dL (3.5-5.0); Albumin Globulin Ratio 1.5 (1.0-2.8); Alkaline Phosphatase 64 U/L (38-126); Aspartate Aminotransferase 42 IU/L (14-36); BUN Creatinine Ratio 12.2 (6-22); Bilirubin Total 0.4 mg/dL (0.2-1.3); Blood Urea Nitrogen 12 mg/dL (7-17); Calcium 9.2 mg/dL (8.4-10.2); Carbon Dioxide 27 mmol/L (22-32); Chloride 104 mmol/L (98-107); Estimated Glomerular Filt Rate > 60 mL/min (>60); Globulin 2.9 g/dL (1.7-4.1); Glucose 90 mg/dL (70-100); HEMOLYSIS < 15 (0-50); Potassium 4.3 mmol/L (3.4-5.1); Sodium 140 mmol/L (137-145); Total Protein 7.3 g/dL (6.3-8.2)
[2025-01-20 16:50] LABS: TSH w/ Reflex to FT4 2.65 uIU/mL (0.47-4.68)
== END ==
PROVIDERS: PCP Family Medicine; Referring Provider Physician Assistant; Visit Provider Physician Assistant
DX: J06.9 Acute upper respiratory infection, unspecified (principal); R42 Dizziness and giddiness; R05.9 Cough, unspecified
CPT/HCPCS: 0241U; 36415; 71046; 80053; 84443; 85025

== ENCOUNTER → 2025-02-09 14:37 | Outpatient (CLI) | payer OTHER, SELFPAY ==
[2023-10-15 02:40] VITALS: BMI 29.0
[2025-02-11 13:12] LABS: Candida species Negative (Negative); Gardnerella vaginalis Negative (Negative); Trichomoas vaginalis Negative (Negative)
== END ==
PROVIDERS: PCP Family Medicine; Visit Provider Student in an Organized Health Care Education/Training Program
DX: N89.8 Other specified noninflammatory disorders of vagina (principal)
CPT/HCPCS: 87480; 87510; 87660

== ENCOUNTER → 2025-02-24 15:22 | Outpatient (CLI) | payer OTHER, SELFPAY ==
[2023-10-15 02:40] VITALS: BMI 29.0
--- NOTE | 2025-02-24 15:25 | DI.RAD.S_ITS ---
PROCEDURE: XR KUB INDICATIONS: Left flank pain, RLQ pain TECHNIQUE: One view of the abdomen acquired. COMPARISON: None. FINDINGS: Stool gas pattern: Normal-no evidence of ileus or obstruction. No free intraperitoneal or extraperitoneal air. No gross evidence of ascites Soft tissues: No abnormal calcifications. No soft tissue masses. Organs: No gross evidence for organomegaly. IMPRESSION: Normal abdomen Dictated by: Dell Sanchez M.D. on 02/25/2025 at 11:41 Approved by: Dell Sanchez M.D. on 02/25/2025 at 11:42
[2025-02-24 17:30] LABS: Alanine Aminotransferase 22 IU/L (<35); Albumin 4.5 g/dL (3.5-5.0); Albumin Globulin Ratio 1.8 (1.0-2.8); Alkaline Phosphatase 65 U/L (38-126); Aspartate Aminotransferase 20 IU/L (14-36); BUN Creatinine Ratio 18.4 (6-22); Bilirubin Total 0.7 mg/dL (0.2-1.3); Blood Urea Nitrogen 19 mg/dL (7-17); Calcium 9.1 mg/dL (8.4-10.2); Carbon Dioxide 28 mmol/L (22-32); Chloride 104 mmol/L (98-107); Estimated Glomerular Filt Rate > 60 mL/min (>60); Globulin 2.5 g/dL (1.7-4.1); Glucose 78 mg/dL (70-100); HEMOLYSIS < 15 (0-50); Potassium 4.3 mmol/L (3.4-5.1); Sodium 140 mmol/L (137-145)
== END ==
PROVIDERS: PCP Family Medicine; Referring Provider Physician Assistant; Visit Provider Physician Assistant
DX: R10.31 Right lower quadrant pain (principal); R74.8 Abnormal levels of other serum enzymes; Z87.442 Personal history of urinary calculi
CPT/HCPCS: 36415; 74018; 80053

== ENCOUNTER → 2025-02-24 15:24 | Outpatient (CLI) | payer OTHER, SELFPAY ==
[2023-10-15 02:40] VITALS: BMI 29.0
== END ==
PROVIDERS: PCP Family Medicine; Visit Provider Physician Assistant
DX: Z87.442 Personal history of urinary calculi (principal); R30.0 Dysuria
CPT/HCPCS: 36415; 74018; 80053; 87077; 87086

== ENCOUNTER → 2025-03-04 15:44 | Outpatient (CLI) | payer OTHER, SELFPAY ==
[2023-10-15 02:40] VITALS: BMI 29.0
--- NOTE | 2025-03-04 15:47 | DI.US.S_ITS ---
PROCEDURE: US RENAL COMPLETE INDICATIONS: LEFT FLANK AND RIGHT LOWER QUADRANT PAIN; URINARY HESITANCY TECHNIQUE: Real-time scanning was performed of the kidneys and bladder, with image documentation. COMPARISON: None. FINDINGS: Kidneys: Kidneys are normal in size. Right kidney measures 9.3 cm long; left kidney measures 9.8 cm long. Right renal cortical thickness is 1.4 cm; left renal cortical thickness is 1.3 cm. Renal cortical echotexture is normal. No hydronephrosis or nephrolithiasis. Limit evaluation of the left kidney with possible cyst seen in the superior pole measuring 1.6 x 1.4 x 1.2 cm. Bladder: Pre-void bladder volume is 215 mL. Post-void residual is 19 mL. Pre-void images demonstrate possible stone at the right UVJ measuring 1.0 x 0.9 cm. On pre-void images, bilateral ureteral jets are noted with color Doppler interrogation. (Of note, ureteral jets may not be detectable in up to 25% of cases due to insufficient differences in specific gravity between ureteral and bladder urine). Miscellaneous: No free pelvic fluid. Cholelithiasis without wall thickening. IMPRESSION: Query 1.0 cm right UVJ calculus. No right hydronephrosis visualized sonographically. Recommend clinical correlation and further evaluation with CT KUB can be performed if appropriate. Limit evaluation of the left kidney with possible cyst seen in the superior pole. Limited view of the gallbladder demonstrates cholelithiasis without wall thickening to suggest acute cholecystitis. Approved by: Agueda Nickerson M.D.,Ph.D. on 03/04/2025 at 17:56
== END ==
PROVIDERS: PCP Family Medicine; Referring Provider Physician Assistant; Visit Provider Physician Assistant
DX: K80.20 Calculus of gallbladder without cholecystitis without obstruction (principal); R10.31 Right lower quadrant pain; Z87.442 Personal history of urinary calculi
CPT/HCPCS: 76770

== ENCOUNTER → 2025-03-10 15:10 | Outpatient (CLI) | payer OTHER, SELFPAY ==
[2025-03-05 13:30] VITALS: BMI 29.0
== END ==
LOC: LAB 15:12
PROVIDERS: PCP Family Medicine; Visit Provider Urology
DX: R39.9 Unspecified symptoms and signs involving the genitourinary system (principal)
CPT/HCPCS: 81002; 87077; 87086; 87186

== ENCOUNTER → 2025-03-16 11:24 | Outpatient (CLI) | payer OTHER, SELFPAY ==
[2025-03-05 13:30] VITALS: BMI 29.0
--- NOTE | 2025-03-16 11:25 | DI.CT.S_ITS ---
PROCEDURE: CT KIDNEY URETER BLADDER (KUB) INDICATIONS: 59 y/o F w/ questionable right UVJ calculus on RBUS, eval TECHNIQUE: After the administration of oral contrast, 5 mm thick sections acquired from the diaphragms to the symphysis. 5 mm coronal and sagittal reformats were performed. For radiation dose reduction, the following was used: automated exposure control, adjustment of mA and/or kV according to patient size. COMPARISON: [facility], CT, CT KIDNEY URETER BLADDER (KUB), 10/14/2023, 23:48. FINDINGS: Image quality: Diagnostic. Lower Chest: No significant findings. ABDOMEN: Liver: No contour-deforming mass. Gallbladder: No radiopaque gallstones or wall thickening. Biliary ducts: No biliary dilation. Pancreas: No ductal dilation. Spleen: Size is within normal limits. Adrenal Glands: No adrenal nodules. Kidneys and Ureters: No hydronephrosis. No contour-deforming mass. Stomach and Bowel: Normal colonic caliber, without significant wall thickening. Appendectomy. Peritoneum: No abnormal intraperitoneal fluid. No free air. Ventral Wall: No significant hernia. Abdominal Nodes: No retroperitoneal or mesenteric adenopathy by size criteria. Vessels: Aorta and inferior vena cava are normal in size. PELVIS: Pelvic Organs: Unremarkable. Bladder: Stone measuring 8 mm within the urinary bladder at the right ureterovesicular junction. No hydroureter or hydronephrosis. Urinary bladder is otherwise decompressed, limiting evaluation. Pelvic Nodes: No enlarged lymph nodes. Miscellaneous: No inguinal hernias are seen. Bones: No aggressive osseous abnormality. IMPRESSION: Stone within the urinary bladder at the right ureterovesicular junction measuring 8 mm. There is no associated hydroureter or hydronephrosis. Dictated by: Yo Wright M.D. on 03/16/2025 at 13:17 Approved by: oY Wright M.D. on 03/16/2025 at 13:22
== END ==
LOC: CT 11:25
PROVIDERS: PCP Family Medicine; Referring Provider Urology; Visit Provider Urology
DX: N20.1 Calculus of ureter (principal)
CPT/HCPCS: 74176

== ENCOUNTER → 2025-03-30 09:42 | Outpatient (CLI) | payer OTHER, SELFPAY ==
[2025-03-05 13:30] VITALS: BMI 29.0
--- NOTE | 2025-03-30 09:43 | DI.CT.S_ITS ---
PROCEDURE: CT PEL WO CON INDICATIONS: 59 y/o F w/ 8mm R UVJ calculus, eval for passage TECHNIQUE: Noncontrast 3 mm axial sections acquired through the bony pelvis, with coronal and sagittal reformatting. COMPARISON: [facility], CT, CT KIDNEY URETER BLADDER (KUB), 03/16/2025, 11:34. FINDINGS: Image quality: Excellent. Bones: No marrow edema. No fracture or dislocation. Bilateral hip joint osteoarthritic changes are seen. No evidence of avascular necrosis of femoral head. No aggressive appearing bony lesions. Soft tissues: Previously described 8 mm stone in the region of right UVJ/right-sided urinary bladder remains unchanged in size and position. No hydroureter is seen. No new bladder stones are noted. No abnormal bladder wall thickening. Uterus and bilateral ovaries are within normal limits. There is no bowel obstruction or abnormal bowel wall thickening. No free fluid or free air. No pelvic lymphadenopathy by size criteria. No inguinal hernia. IMPRESSION: 1. 8 mm stone again seen in right bladder wall th pendant portion near right UVJ unchanged from prior study. No associated hydroureter is seen. No bladder wall thickening. No new bladder stones. 2. No acute inflammatory process is seen within the pelvis. No free fluid or free air. Dictated by: Esteban Velasquez M.D. on 03/30/2025 at 10:32 Approved by: Esteban Velasquez M.D. on 03/30/2025 at 10:36
== END ==
LOC: CT 09:42
PROVIDERS: PCP Family Medicine; Referring Provider Family Medicine; Visit Provider Urology
DX: N20.1 Calculus of ureter (principal)
CPT/HCPCS: 72192

== ENCOUNTER 2025-04-09 07:50 | Day surgery (SDC) | payer OTHER, SELFPAY ==
[2025-03-05 13:30] VITALS: BMI 29.0
[2025-04-02 12:51] VITALS: BMI 24.7
[2025-04-09 08:34] VITALS: BMI 23.9
[2025-04-09] MEDS: ACETAMINOPHEN IV 1,000 MG/100 ML VIAL 400 MG IV (08:57)
[2025-04-09] MEDS: SCOPOLAMINE 1 PATCH TOP (08:59)
[2025-04-09] MEDS: LACTATED RINGERS 1,000 ML 21 ML IV (09:00)
[2025-04-09 09:02] VITALS: BP 138/74; PULSE 69; RESP 13; TEMP 36.3; O2SAT 100
[2025-04-09] MEDS: LACTATED RINGERS 1,000 ML 42 ML IV (09:11)
--- NOTE | 2025-04-09 09:24 | PM.PREOP ---
Pre-operative Note COVID-19 COVID-19 status: Not tested Interval Note History & Physical reviewed/Exam performed by Physician: Yes Changes to H&P: No
--- NOTE | 2025-04-09 10:28 | SUR.OPER ---
Lithotomy on padded OR bed, head on pillow, arms secured on padded arm boards at <90 degrees abduction. Legs secured in padded yellow fins stirrups.
[2025-04-09 10:52] VITALS: BP 128/74; PULSE 59; RESP 14; TEMP 36.7; O2SAT 98
[2025-04-09 10:57] VITALS: BP 126/74; PULSE 56; RESP 14; O2SAT 97
[2025-04-09] MEDS: iopamidoL 30 ML VIAL INJ (11:00)
--- NOTE | 2025-04-09 11:00 | DI.RAD.S_ITS ---
PROCEDURE: XR KUB INDICATIONS: STENT PLACEMENT TECHNIQUE: Intraoperative views of the abdomen acquired. COMPARISON: [facility], , XR KUB, 02/24/2025, 15:21. FINDINGS/IMPRESSION: Intraoperative views during right ureteral stent placement. Dictated by: Yo Wright M.D. on 04/09/2025 at 16:03 Approved by: Yo Wright M.D. on 04/09/2025 at 16:04
[2025-04-09 11:02] VITALS: BP 127/70; PULSE 61; RESP 14; O2SAT 100
--- NOTE | 2025-04-09 11:03 | P.OP_ITS ---
Operative Date/Time/Diagnoses Date of procedure: 04/09/25 Time of procedure: 10:00 Pre-op diagnosis: Right ureteral calculus Post-op diagnosis: same Procedure & Clinicians Procedure: Cystoscopy Right retrograde ureteropyelogram Right ureteroscopy, laser lithotripsy Right ureteral stent placement Intraoperative interpretation of fluoroscopic images, total time < 1 hour Same procedure as scheduled: Yes Indications: 59 y/o F w/ a 1cm right UVJ calculus who has now failed medical expulsion therapy and strongly desires surgical management via a cystoscopy, right ureteroscopy, laser lithotripsy and right ureteral stent placement due to 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 Surgeon: Stiven Munoz Click Yes if Unassisted: Yes Anesthesia Type: General Operative Notes Findings: Very large distal right ureteral stone Closure Type: not applicable Specimen(s): other (right ureteral stone) Estimated Blood Loss (mL): 2 Blood products transfused: none Procedure in detail: Patient was identified in the preoperative holding area and consent confirmed. She was then brought to the operating room where general anesthesia was induced.? She was placed in the low lithotomy position. She was then prepped and draped in the usual sterile fashion. A surgical timeout was conducted and all were in agreement. Access to the bladder was obtained via a 30 degree cystoscope.? Complete cystoscopy was then performed and no concerning bladder masses or lesions were appreciated.? Bilateral ureteral orifices were easily identified and noted to be orthotopic in nature.? The right ureteral orifice was then cannulated using a 0.035 sensor tip ureteral guidewire and a 5Fr ureteral catheter was advanced over the guidewire and into the distal right ureter.? The guidewire was then removed and a retrograde ureteropyelogram was performed which noted a large filling defect in the distal ureter, consistent with CT findings of a large stone in this area.? The ureteral guidewire was then readvanced through the ureteral catheter and into the right renal pelvis.? The ureteral catheter was then removed and a semirigid ureteroscope was easily advanced into her right ureter alongside the guidewire and to the level of the stone.? A 365 micron laser fiber was then utilized to perform laser lithotripsy.? All stone fragments >1mm in size were removed via the stone basket and sent for chemical analysis.? The ureter was then directly visualized upon removal of the ureteroscope and noted to be stone free.? A 6Fr multi-length JJ ureteral stent without string was then advanced over the ureteral guidewire.? Upon removal of the guidewire, a good curl was noted in the right renal pelvis and the bladder using fluoroscopy.? The bladder was then drained.? Anesthesia was reversed, she was extubated in the OR and transferred to the PACU in stable condition for recovery. Complications: none Post-operative Condition: stable Disposition: PACU Plan for aftercare: Discharge home from PACU. Will return for a cystoscopy and right ureteral stent removal on 05 May 2025.
[2025-04-09 11:08] VITALS: BP 139/61; PULSE 61; RESP 18; O2SAT 100
[2025-04-09] MEDS: OXYCODONE IR 5 MG TABLET PO (11:08)
[2025-04-09 11:13] VITALS: BP 123/57; PULSE 59; RESP 16; TEMP 36.2; O2SAT 100
== END 2025-04-09 11:47 | disposition home or self-care (01) ==
PROVIDERS: PCP Family Medicine; Referring Provider Urology; Visit Provider Urology
PROC: (CPT 52356; principal; 2025-04-09 09:15)
DX: N20.1 Calculus of ureter (principal)
CPT/HCPCS: 52356; 74018; 76000; 82365; C2617; J0131; J1100; J1885; J2250; J2405; J2704; Q9967

== ENCOUNTER → 2025-04-23 12:17 | Outpatient (CLI) | payer OTHER, SELFPAY ==
[2025-03-05 13:30] VITALS: BMI 29.0
== END ==
PROVIDERS: PCP Family Medicine; Visit Provider Urology
DX: N20.1 Calculus of ureter (principal); R39.9 Unspecified symptoms and signs involving the genitourinary system
CPT/HCPCS: 52310; 81002; 87086; 99212

== ENCOUNTER → 2025-05-05 09:20 | Outpatient (CLI) | payer OTHER, SELFPAY ==
[2025-03-05 13:30] VITALS: BMI 29.0
[2025-05-05 11:34] LABS: Free T4, Direct Thyroxine 1.24 ng/dL (0.78-2.19)
[2025-05-05 11:47] LABS: Thyroid Stimulating Hormone 3.71 uIU/mL (0.47-4.68)
== END ==
PROVIDERS: PCP Family Medicine; Referring Provider Family Medicine; Visit Provider Family Medicine
DX: Z86.39 Personal history of other endocrine, nutritional and metabolic disease (principal)
CPT/HCPCS: 36415; 84439; 84443